=== PATIENT | male | born 1965 | race Caucasian/White ===

== ENCOUNTER 2017-08-07 16:18 | Emergency (ER) | payer MEDICAID ==
[~2017-08-07] VITALS: Ht 170.2 cm; Wt 72.6 kg
[2017-08-07 16:27] VITALS: BP 122/74
[2017-08-07 17:19] VITALS: BP 122/74
== END 2017-08-07 17:19 | disposition home or self-care (01) ==
LOC: MED 16:18
DX: K04.7 Periapical abscess without sinus (principal); Z88.0 Allergy status to penicillin
CPT/HCPCS: 99283